=== PATIENT | male | born 1945 | race Caucasian/White ===

== ENCOUNTER 2018-05-24 11:21 | Emergency (ER) | payer BC, MEDICARE, OTHER, SELFPAY ==
[2018-05-24 11:25] VITALS: BP 159/86; PULSE 53; RESP 18; TEMP 36.7; O2SAT 99
--- NOTE | 2018-05-24 11:39 | DI.RAD.S_ITS ---
PROCEDURE: XR RIBS LT MIN 3V W CXR1V INDICATIONS: fall w/ left rib pain. TECHNIQUE: 2 views of the left ribs were acquired, along with a single view chest. COMPARISON: [facility], , CHEST 2 VIEW, 10/02/2009, 16:30. FINDINGS: Surgical changes and devices: Median sternotomy wires. Bones and chest wall: No fractures or dislocations. No suspicious bony lesions. Overlying soft tissues appear unremarkable. Lungs and pleura: No pleural effusions or pneumothorax. Lungs appear clear. Mediastinum: Mediastinal contours appear normal. Heart size is normal. IMPRESSION: No displaced rib fracture. No acute cardiopulmonary disease process. Dictated by: Nisha Webb MD, PhD on 05/24/2018 at 12:06 Approved by: Nisha Webb MD, PhD on 05/24/2018 at 12:07
--- NOTE | 2018-05-24 12:05 | ED_ITS ---
HPI - Back Pain/Injury <DAVID Ferguson - Last Filed: 05/24/18 22:23> General Chief Complaint: Back Pain/Injury Stated Complaint: FELL OFF TRUCK AND POSSIBLY BROKE RIBS Time Seen by Provider: 05/24/18 12:05 Source: patient Mode of arrival: ambulatory Limitations: no limitations History of Present Illness HPI Narrative: 72-year-old male here for complaint of pain into his left lateral ribcage after he fell out of the back of his pickup truck 2 days ago. He states that he stepped backwards and stepped off the back of the tailgate landing on his left posterior ribcage area. He denies any head injury. He denies any back pain. No neck pain. No loss of consciousness. Patient is ambulatory into the emergency room. He reports pain into his the left lateral rib ribcage that was worse this morning when he woke up. Increased pain with touch to the left lateral ribcage. He denies any shortness of breath. No other concerns or complaints at this time. Review of Systems <DAVID Ferguson - Last Filed: 05/24/18 22:23> Eyes Denies change in vision, Denies eye discharge, Denies irritation and Denies loss of vision ENT Ears, Nose, Mouth, and Throat: Denies change in voice, Denies neck pain and Denies sore throat Cardiovascular Denies chest pain, Denies irregular heart rhythm, Denies lightheadedness, Denies palpitations, Denies dyspnea, Denies dyspnea on exertion and Denies orthopnea Respiratory Denies cough, Denies dyspnea, Denies dyspnea on exertion and Denies wheezing Gastrointestinal Gastrointestinal: Denies abdominal pain, Denies change in bowel habits, Denies diarrhea, Denies nausea and Denies vomiting Genitourinary Denies hematuria, Denies flank pain, Denies urinary incontinence and Denies urinary urgency Comments: Musculoskeletal Denies neck pain Comments: Pain to left lateral ribcage status post fall Integumentary/Breasts Denies pruritus, Denies erythema, Denies rash and Denies wounds Neurologic Denies confusion and Denies loss of vision Psychiatric Denies anxiety, Denies confusion, Denies depression, Denies homicidal ideation and Denies suicidal ideation Endocrine Denies palpitations Hematologic/Lymphatic Denies easy bruising Allergic/Immunologic Denies wheezing Exam <DAVID Ferguson - Last Filed: 05/24/18 22:23> Initial Vital Signs Initial Vital Signs: Vital Signs Temperature 98.1 F 05/24/18 11:25 Pulse Rate 53 L 05/24/18 11:25 Respiratory Rate 18 05/24/18 11:25 Blood Pressure 159/86 H 05/24/18 11:25 Pulse Oximetry 99 05/24/18 11:25 Const General: cooperative and well developed Nutritional Appearance: well nourished Orientation: alert, awake, oriented x3 and not confused [facility] Mouth: oral mucosae normal and moist mucous membranes Eyes Conjunctivae: conjunctivae normal Sclera: sclerae normal Pupils: PERRL EOM: EOM intact bilaterally Resp Effort & Inspection: normal respiratory effort, able to speak in complete sentences, no respiratory distress and no use of accessory muscles Auscultation: clear to auscultation bilaterally, no rales, no rhonchi and no wheezes Cardio Rate: regular rate Rhythm: regular rhythm Heart Sounds: no click, no gallops, murmur and no rubs Pulses: normal peripheral pulses GI Inspection: non-distended Palpation: soft, no hepatosplenomegaly, No guarding, No pulsatile mass and No tender Auscultation: normal bowel sounds Skin General: no rashes or lesions noted, No jaundice and No petechiae Neuro General: alert, oriented x3, gait normal and no focal motor deficits Speech: speech normal Extrem Other: Tenderness on palpation to the left lateral rib cage. No ecchymosis. No deformities. <Aneesh Sher DO - Last Filed: 05/25/18 07:10> Initial Vital Signs Initial Vital Signs: Vital Signs Temperature 98.1 F 05/24/18 11:25 Pulse Rate 53 L 05/24/18 11:25 Respiratory Rate 18 05/24/18 11:25 Blood Pressure 159/86 H 05/24/18 11:25 Pulse Oximetry 99 05/24/18 11:25 Course <DAVID Ferguson - Last Filed: 05/24/18 22:23> Orders Ordered: ED Orders 05/24/18 11:39 XR ribs LT min 3V w CXR1V Stat Vital Signs - 8 hr 05/24/18 11:25 Temperature 98.1 F Pulse Rate 53 L Respiratory Rate 18 Blood Pressure 159/86 H Pulse Oximetry 99 <Aneesh Sher DO - Last Filed: 05/25/18 07:10> Orders Ordered: ED Orders 05/24/18 11:39 XR ribs LT min 3V w CXR1V Stat Vital Signs - 8 hr 05/24/18 11:25 Temperature 98.1 F Pulse Rate 53 L Respiratory Rate 18 Blood Pressure 159/86 H Pulse Oximetry 99 MDM - Back Pain/Injury <DAVID Ferguson - Last Filed: 05/24/18 22:23> Imaging Data left ribs: Radiologist's impression: Signed Patient: Dylan Howard MR#: [id number] : 1945 Acct:[id number] Age/Sex: 72 / M Date of Service: 05/24/18 Loc: ED Accession Number: [id number] Procedure: XR ribs LT min 3V w CXR1V Ordering Provider: Aneesh Sher D.O. PROCEDURE: XR RIBS LT MIN 3V W CXR1V INDICATIONS: fall w/ left rib pain. TECHNIQUE: 2 views of the left ribs were acquired, along with a single view chest. COMPARISON: [facility], , CHEST 2 VIEW, 10/02/2009, 16:30. FINDINGS: Surgical changes and devices: Median sternotomy wires. Bones and chest wall: No fractures or dislocations. No suspicious bony lesions. Overlying soft tissues appear unremarkable. Lungs and pleura: No pleural effusions or pneumothorax. Lungs appear clear. Mediastinum: Mediastinal contours appear normal. Heart size is normal. IMPRESSION: No displaced rib fracture. No acute cardiopulmonary disease process. Dictated by: Nisha Webb MD, PhD on 05/24/2018 at 12:06 Approved by: Nisha Webb MD, PhD on 05/24/2018 at 12:07 [facility] Narrative Medical decision making narrative: X-ray of the left ribs and chest was obtained was negative for any acute fractures. Signs and symptoms presents as contusion to the left ribcage. [id number] Tylenol or Motrin as needed for any discomfort. Rest area. Follow up with primary care provider later this week for re-evaluation. For any worsening symptoms return to the emergency room. Discharge Plan Departure Patient Disposition: Home, Self-Care Clinical Impression: Contusion of rib on left side Discharge Date/Time: 05/24/18 12:41 Interventions: ED Discharge Assessment Last Done: 05/24/18 12:39 Instructions: DI for Rib Contusion Activity Restrictions/Additional Instructions: X-ray of the left ribs and chest was obtained was negative for any acute fractures. Signs and symptoms presents as contusion to the left ribcage. Over- the-counter Tylenol or Motrin as needed for any discomfort. Rest area. Follow up with primary care provider later this week for re-evaluation. For any worsening symptoms return to the emergency room. Referrals: Karthik Aleman MD [Primary Care Provider] - <Aneesh Sher DO - Last Filed: 05/25/18 07:10> Cosign ED Attending Laila Attestation: I was available for consultation during this patient's emergency department encounter
== END 2018-05-24 12:41 | disposition home or self-care (01) ==
PROVIDERS: Emergency Provider Nurse Practitioner Family; PCP Family Medicine
DX: S20.212A Contusion of left front wall of thorax, initial encounter (principal); W17.89XA Other fall from one level to another, initial encounter
CPT/HCPCS: 71101; 99282; 99283

== ENCOUNTER 2018-06-01 11:54 | Emergency (ER) | payer BC, MEDICARE, OTHER, SELFPAY ==
[2018-06-01 11:59] VITALS: BP 189/85; PULSE 70; RESP 14; TEMP 36.7; O2SAT 100; BMI 30.2
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
--- NOTE | 2018-06-01 12:34 | DI.CT.S_ITS ---
PROCEDURE: CT THORACIC SPINE WO CON INDICATIONS: pain s/p fall, history of spine fx TECHNIQUE: Noncontrast 3 mm thick sections acquired through the region of interest in the thoracic spine. Sagittal and coronal reformats were then constructed. For radiation dose reduction, the following was used: automated exposure control. COMPARISON: [facility], CHEST 2 VIEW, 10/02/2009, 16:30. FINDINGS: Image quality: Excellent. Bones: There is normal overall bony alignment. Upper thoracic kyphosis is associated with a chronic compression fracture of T6 and disc degeneration T5-6. No acute vertebral body compression fractures. No suspicious sclerotic or lytic bony lesions. Central spinal canal is of normal overall caliber. Soft tissues: Left posterior calcified pleural plaque. No paravertebral masses or hematomas. Visualized posteromedial lungs appear clear. Aortic valve replacement and median sternotomy. IMPRESSION: 1. Upper thoracic kyphosis. 2. Chronic compression fracture T6. 3. Degenerative disc disease T5-6. Dictated by: Junior Shay M.D. on 06/01/2018 at 13:28 Approved by: Junior Shay M.D. on 06/01/2018 at 13:39
[2018-06-01 13:05] LABS: D Dimer 467 ng/mL (<230)
[2018-06-01 13:08] LABS: BUN Creatinine Ratio 27.5 (6-22); Blood Urea Nitrogen 22 mg/dL (9-20); Calcium 9.3 mg/dL (8.4-10.2); Carbon Dioxide 31 mmol/L (22-32); Chloride 100 mmol/L (98-107); Estimated Glomerular Filt Rate > 60.0 mL/min (>60); Glucose 95 mg/dL (80-110); HEMOLYSIS < 15 (0-50); Potassium 3.8 mmol/L (3.4-5.1); Sodium 140 mmol/L (137-145)
[2018-06-01 13:25] VITALS: BP 122/52; PULSE 85; RESP 22; O2SAT 93
[2018-06-01 13:51] LABS: INR 1.1 (0.9-1.3); Prothrombin Time 11.6 SECONDS (10.1-12.7)
[2018-06-01 13:54] LABS: PTT Partial Thromboplastin Tim 35 SECONDS (26.4-36.2)
--- NOTE | 2018-06-01 14:03 | DI.CT.S_ITS ---
PROCEDURE: CT ANGIO CHEST PE PROTOCOL INDICATIONS: thoracic pain, elevated d dimer, h/o DVT TECHNIQUE: After the administration of intravenous contrast, 2 mm thick sections acquired from the pulmonary apices to the posterior costophrenic angles. 3-dimensional maximum intensity projection (MIP) coronal and sagittal reformats were then acquired through the thorax. For radiation dose reduction, the following was used: automated exposure control, adjustment of mA and/or kV according to patient size. COMPARISON: [facility], CT, CT THORACIC SPINE WO CON, 06/01/2018, 13:06. FINDINGS: Image quality: Excellent. Pulmonary arteries: Pulmonary arteries are normal in size, and demonstrate no intraluminal filling defects to suggest central pulmonary embolism. Lungs and pleura: No acute consolidation. 1-2 mm lobe pulmonary nodule seen for example on image 21 at 5, image 25 series 5.. Calcified left pleural plaque No pleural effusions or pneumothorax. Central and peripheral airways are patent. Mediastinum: Heart size is enlarged, without pericardial effusion. Coronary artery calcifications are present. No mediastinal or hilar adenopathy. Thoracic aorta is normal in caliber and enhancement. Esophagus is normal in caliber, without hiatal hernia. Bones and chest wall: Minimally displaced fractures of the left fifth, eighth, ninth ribs. Chronic partial osseous fusion of C5 and C6 vertebral bodies Abdomen: Visualized upper abdominal solid organs appear normal in the early arterial phase of enhancement. IMPRESSION: No evidence of pulmonary embolism. Acute appearing left fifth, eighth and ninth minimally displaced rib fractures. Cardiomegaly, and coronary artery disease. Calcified left pleural plaque raises the possibility of asbestos related pleural disease. Nonspecific 4 mm right upper lobe pulmonary nodules which be further evaluated with noncontrast chest CT in one year to document long-term stability and exclude early metastatic/malignant possibilities, as clinically warranted. Dictated by: Evan Underwood M.D. on 06/01/2018 at 14:18 Approved by: Evan Underwood M.D. on 06/01/2018 at 14:25
[2018-06-01] MEDS: OXYCODONE/ACETAMINOPHEN 5/325 TABLET 1 TAB PO (14:09)
[2018-06-01] MEDS: SODIUM CHLORIDE 0.9% 1,000 ML 1000 ML IV (14:10)
[2018-06-01 15:20] VITALS: BP 188/84; PULSE 58; RESP 20; O2SAT 100
--- NOTE | 2018-06-01 15:22 | PC.NURSE ---
manuel RN in room to talk to pt about questions and concerns they have about discharge instructions. questions answered before depart.
== END 2018-06-01 15:23 | disposition home or self-care (01) ==
PROVIDERS: Emergency Provider Internal Medicine; PCP Family Medicine
DX: S22.42XA Multiple fractures of ribs, left side, initial encounter for closed fracture (principal); W17.89XA Other fall from one level to another, initial encounter
CPT/HCPCS: 36415; 36591; 71275; 72128; 80048; 85379; 85610; 85730; 96360; 99283; 99284; Q9967

== ENCOUNTER → 2018-06-19 10:24 | Outpatient (CLI) | payer BC, MEDICARE, OTHER, SELFPAY ==
--- NOTE | 2018-06-19 | DI.RAD.S_ITS ---
PROCEDURE: XR CHEST 2V INDICATIONS: Intercostal pain TECHNIQUE: 2 views of the chest were acquired. COMPARISON: [facility], , CHEST 2 VIEW, 10/02/2009, 16:30. FINDINGS: Surgical changes and devices: Prosthetic heart valve is seen. Sternotomy wires also noted. Lungs and pleura: No pleural effusions or pneumothorax. Lungs are clear. Mediastinum: Mediastinal contours are normal. Heart size is normal. Bones and chest wall: No suspicious bony abnormalities. Soft tissues appear unremarkable. IMPRESSION: No acute cardiopulmonary pathology. Dictated by: Riccardo Sanchez M.D. on 06/19/2018 at 12:07 Approved by: Riccardo Sanchez M.D. on 06/19/2018 at 12:09
== END ==
PROVIDERS: PCP Family Medicine; Visit Provider Family Medicine
DX: R07.82 Intercostal pain (principal)
CPT/HCPCS: 71046

== ENCOUNTER 2020-05-20 09:44 | Emergency (ER) | payer MEDICARE, OTHER, SELFPAY ==
[2020-05-20] VITALS (13 sets, daily range): BP systolic 145–200; BP diastolic 74–93; PULSE 64–68; RESP 14–18; TEMP 36.6; O2SAT 98–100
[2020-05-20] MEDS: SODIUM CHLORIDE 0.9% 1,000 ML 1000 ML IV (10:18)
[2020-05-20 10:35] LABS: Add Manual Diff / Slide Review NO; Basophils Absolute Auto 100 /uL (0-100); Basophils Percent Auto 0.5 % (0-2); Eosinophils Absolute Auto 300 /uL (0-450); Eosinophils Percent Auto 2.7 % (2-4); Hematocrit 43.1 % (41-53); Hemoglobin 14.4 g/dL (13.5-17.5); Lymphocytes Absolute Auto 2400 /uL (1100-4500); Lymphocytes Percent Auto 23.7 % (25-40); Mean Corpuscular HGB Conc 33.4 % (30-36); Mean Corpuscular Hemoglobin 29.6 PG (26-34); Mean Corpuscular Volume 88.6 fL (80-100); Monocytes Absolute Auto 1100 /uL (0-900); Monocytes Percent Auto 10.7 % (3-14); Neutrophils Absolute Auto 6300 /uL (1500-7000); Neutrophils Percent Auto 62.4 % (50-75); Platelet Count 259 X10^3/uL (150-400); Red Blood Cell Count 4.86 X10^6/uL (4.5-5.9); Red Cell Distribution Width 13.9 % (11.6-14.8); White Blood Cell Count 10.1 X10^3/uL (4.5-11.0)
[2020-05-20 10:39] LABS: Alanine Aminotransferase 46 IU/L (<50); Albumin 4.3 g/dL (3.5-5.0); Albumin Globulin Ratio 1.5 (1.0-2.8); Alkaline Phosphatase 110 U/L (38-126); Aspartate Aminotransferase 49 IU/L (17-59); BUN Creatinine Ratio 26.9 (6-22); Bilirubin Total 0.6 mg/dL (0.2-1.3); Blood Urea Nitrogen 21 mg/dL (9-20); Calcium 9.6 mg/dL (8.4-10.2); Carbon Dioxide 31 mmol/L (22-32); Chloride 106 mmol/L (98-107); Estimated Glomerular Filt Rate > 60.0 mL/min (>60); Globulin 2.8 g/dL (1.7-4.1); Glucose 90 mg/dL (80-110); HEMOLYSIS < 15 (0-50); Sodium 141 mmol/L (137-145); Total Protein 7.1 g/dL (6.3-8.2)
--- NOTE | 2020-05-20 11:25 | DI.US.S_ITS ---
PROCEDURE: US ABDOMEN LIMITED INDICATIONS: UPPER MID ABD PAIN, INTERMITTENT NAUSEA TECHNIQUE: Real-time scanning was performed of the abdominal and retroperitoneal organs, with image documentation. COMPARISON: None. FINDINGS: Liver: Liver is normal in size and homogeneous in echotexture. Gallbladder: Is within normal limits Biliary ducts: Intrahepatic bile ducts are non-dilated. Extrahepatic bile duct caliber measures 7.3 mm. Normal is 6-7 mm or less in diameter, or 10 mm or less post-cholecystectomy. Pancreas: Not well seen. IMPRESSION: No acute process. Dictated by: Jacki Wolf M.D. on 05/20/2020 at 12:04 Approved by: Jacki Wolf M.D. on 05/20/2020 at 12:04
[2020-05-20 11:55] LABS: Creatine Kinase 66 U/L (55-170); Lipase 339 U/L (23-300)
[2020-05-20 12:08] LABS: Troponin I < 0.012 ng/mL (0.01-0.034)
--- NOTE | 2020-05-20 13:25 | ED.NAVMDI ---
HPI - Nausea/Vomiting/Diarrhea <DAVID Villarreal - Last Filed: 05/20/20 18:14> General Chief complaint: Nausea/Vomiting/Diarrhea Stated complaint: Thinks food poisening - 05/09/20 Time Seen by Provider: 05/20/20 11:08 Source: patient Mode of arrival: Ambulatory Limitations: no limitations History of Present Illness HPI Narrative: This is a 74-year-old male, former smoker, who has chronic medical condition such as hypertension, aortic valve replacement presents to ED with chief complain of mid upper abdominal discomfort and intermittent nausea and fever which has been resolved after a day. Patient reports his symptoms started after he had eaten well cooked burger with fries and onion rings at [facility] on 05/09/20. Day after, he work around the house strenuously crawling under the crawl spaces. He felt lightheaded and nauseous. Next day, he had fever with T-max of 101.5? and had taken Tylenol and this has been resolved after a day. Since then, patient has been having from loose to now soft stools every 1-2 days. Abdominal pain is not radiating but worsen with eating and intermittent. Patient continue to have intermittent nausea. Patient denies pain or nausea at this time but he had worse cramping pain yesterday. Patient denies chest pain, breathing difficulty. Patient denies blood in his stool or urinary symptoms. Patient denies diarrhea after 1 day on 05/11/20. Patient denies recent travel, camping, eating raw foods, exposure to known illnesses, or exposure to known Covid. Related Data Home Medications Medication Instructions Recorded Confirmed aspirin 325 mg PO DAILY 06/01/18 05/20/20 olmesartan 20 mg PO DAILY 06/01/18 05/20/20 Allergies Allergy/AdvReac Type Severity Reaction Status Date / Time Penicillins Allergy Severe Rash Verified 05/20/20 11:13 erythromycin base Allergy Intermediate Rash Verified 05/20/20 11:13 [From Erythrocin] Review of Systems <DAVID Villarreal - Last Filed: 05/20/20 18:14> Review of Systems Narrative: General: See HPI HEENT: Denies sinus pain, ear pain, sore throat, difficulty swallowing, dizziness. Respiratory: Denies dyspnea, cough, wheezing, hemoptysis, sputum. Cardiovascular: Denies chest pain, palpitations, orthopnea, edema. Gastrointestinal: See HPI : Denies dysuria, frequency, incontinence, hematuria, urinary retention. Musculoskeletal: Denies weakness, joint pain or bony pain. Skin: Denies rash, skin lesions, or other. Neurologic: Denies weakness, headache, numbness, change in speech, confusion, seizures, incoordination. Psychiatric: No concerning psychosocial issues. 12-point review of systems is negative except for those stated above. Patient History <DAVID Villarreal - Last Filed: 05/20/20 18:14> Medical History History of DVT in adulthood (Resolved) History of hyperlipidemia (Resolved) History of spinal fracture (Resolved) Hypertension (Chronic) Surgical History Aortic valve replaced (Resolved) Social History Smoking Status: Former smoker Smoking Status: Former smoker alcohol intake frequency: holidays/special occasions only Substance Use Type: does not use Exam <DAVID Villarreal - Last Filed: 05/20/20 18:14> Narrative Exam Narrative: GEN: Alert, oriented x 3, well appearing and nourished, and in no acute distress. Head: Normal cephalic, atraumatic. No scalp or temporal tenderness, palpable mass or rash. EYES: Pupils are equal, round, and reactive to light and accommodation. Extraocular muscles are intact bilaterally. There is no subconjunctival hemorrhage, exudate and sclera non-icteric. ENT: Hearing grossly intact. Nose without bleeding, purulent discharge or deviation. Mucous membrane moist, no mucosal lesion. Throat without erythema, tonsillar hypertrophy or exudate. Uvula in midline, airway patent. Neck: Trachea in midline. No JVD, non-tender without lymphadenopathy. No masses or thyroid megaly. Supple, non-tender and no meningeal signs. CARDIAC: Normal regular rate and rhythm with mild murmurs. No gallops, or rubs. No chest wall tenderness. No peripheral edema, cyanosis or pallor. Capillary refill is less than 2 seconds. RESPIRATORY: Lungs are clear to auscultate bilaterally. No cough, wheezes, rales, or rhonchi. No stridor, respiratory distress, increase work of breathing, or accessary muscle used. ABD: Abdomen soft, mild tenderness to palpate in epigastric and upper abdomen without distension. No guarding or rebound tenderness to palpate. Bowel sounds are normal in all 4 quadrants. There is no palpable masses or organomegaly. EXT: Full painless ROM of all extremities with no loss of sensation, strength, effusion or edema. SKIN: Warm, dry, normal color for patient. No erythema, lesions or rash over visible areas. BACK: Nontender without deformity or crepitance. No flank tenderness. NEUROLOGICAL: Alert and oriented to place, time and person. Sensation and motor function intact bilaterally. No facial droops, dysphasia. PSYCHIATRIC: Good judgement and reason, without hallucinations, abnormal affect or abnormal behaviors during the examination. Patient is not suicidal. Initial Vital Signs Initial Vital Signs: Vital Signs Temperature 97.8 F 05/20/20 09:47 Pulse Rate 64 05/20/20 09:47 Respiratory Rate 18 05/20/20 09:47 Blood Pressure 200/93 H 05/20/20 09:47 Pulse Oximetry 98 05/20/20 09:47 <Colten Lara MD - Last Filed: 05/21/20 08:05> Initial Vital Signs Initial Vital Signs: Vital Signs Temperature 97.8 F 05/20/20 09:47 Pulse Rate 64 05/20/20 09:47 Respiratory Rate 18 05/20/20 09:47 Blood Pressure 200/93 H 05/20/20 09:47 Pulse Oximetry 98 05/20/20 09:47 Scores <DAVID Villarreal - Last Filed: 05/20/20 18:14> GCS Franklin coma scale eye opening: Spontaneous Power coma scale verbal response: Orientated Franklin coma scale motor response: Obey commands Franklin coma scale total score: 15 Course <DAVID Villarreal - Last Filed: 05/20/20 18:14> Orders Ordered: Discontinued Medications Sodium Chloride (Normal Saline 0.9%) 1,000 mls @ 1,000 mls/hr IV BOLUS ONE Stop: 05/20/20 10:55 Last Infusion: 05/20/20 12:08 Dose: 0 mls/hr Documented by: Admin: 05/20/20 10:18 Dose: 1,000 mls/hr Documented by: GINA Vital Signs Vital signs: Vital Signs - 8 hr 05/20/20 09:47 05/20/20 10:30 05/20/20 11:00 Temperature 97.8 F Pulse Rate 64 68 Respiratory Rate 18 14 Blood Pressure 200/93 H 152/74 H 149/80 H Pulse Oximetry 98 99 05/20/20 11:15 05/20/20 11:30 05/20/20 11:45 Temperature Pulse Rate Respiratory Rate Blood Pressure 168/85 H 152/79 H 159/88 H Pulse Oximetry 05/20/20 12:00 05/20/20 12:15 05/20/20 12:30 Temperature Pulse Rate Respiratory Rate Blood Pressure 145/79 H 153/84 H 150/80 H Pulse Oximetry 05/20/20 12:45 05/20/20 13:00 05/20/20 13:15 Temperature Pulse Rate 65 Respiratory Rate Blood Pressure 156/89 H 158/82 H 163/84 H Pulse Oximetry 100 05/20/20 13:30 Temperature Pulse Rate Respiratory Rate Blood Pressure 156/81 H Pulse Oximetry <Colten Lara MD - Last Filed: 05/21/20 08:05> Orders Ordered: Discontinued Medications Sodium Chloride (Normal Saline 0.9%) 1,000 mls @ 1,000 mls/hr IV BOLUS ONE Stop: 05/20/20 10:55 Last Infusion: 05/20/20 12:08 Dose: 0 mls/hr Documented by: Admin: 05/20/20 10:18 Dose: 1,000 mls/hr Documented by: GINA Vital Signs Vital signs: Vital Signs - 8 hr 05/20/20 09:47 05/20/20 10:30 05/20/20 11:00 Temperature 97.8 F Pulse Rate 64 68 Respiratory Rate 18 14 Blood Pressure 200/93 H 152/74 H 149/80 H Pulse Oximetry 98 99 05/20/20 11:15 05/20/20 11:30 05/20/20 11:45 Temperature Pulse Rate Respiratory Rate Blood Pressure 168/85 H 152/79 H 159/88 H Pulse Oximetry 05/20/20 12:00 05/20/20 12:15 05/20/20 12:30 Temperature Pulse Rate Respiratory Rate Blood Pressure 145/79 H 153/84 H 150/80 H Pulse Oximetry 05/20/20 12:45 05/20/20 13:00 05/20/20 13:15 Temperature Pulse Rate 65 Respiratory Rate Blood Pressure 156/89 H 158/82 H 163/84 H Pulse Oximetry 100 05/20/20 13:30 Temperature Pulse Rate Respiratory Rate Blood Pressure 156/81 H Pulse Oximetry MDM - Nausea/Vomiting/Diarrhea <Fadi DAVID Lewis - Last Filed: 05/20/20 18:14> Differential Diagnosis Differential diagnosis: Likely gastroenteritis, dehydration and other (Bowel obstruction, cholecystitis) Medical Records Attestation: I reviewed the patient's medical records. Lab Data Attestation: I reviewed the patient's lab results. Result diagrams: 05/20/20 10:14 05/20/20 10:14 Labs: Lab Results 05/20/20 05/20/20 05/20/20 Range/Units 10:14 10:14 10:14 WBC 10.1 (4.5-11.0) X10^3/uL RBC 4.86 (4.5-5.9) X10^6/uL Hgb 14.4 (13.5-17.5) g/dL Hct 43.1 (41-53) % MCV 88.6 (80-100) fL MCH 29.6 (26-34) PG MCHC 33.4 (30-36) % RDW 13.9 (11.6-14.8) % Plt Count 259 (150-400) X10^3/uL Neut % (Auto) 62.4 (50-75) % Lymph % (Auto) 23.7 L (25-40) % Charlton % (Auto) 10.7 (3-14) % Eos % (Auto) 2.7 (2-4) % Baso % (Auto) 0.5 (0-2) % Neut # (Auto) 6300 (0090-7950) /uL Lymph # (Auto) 2400 (5198-8613) /uL Charlton # (Auto) 1100 H (0-900) /uL Eos # (Auto) 300 (0-450) /uL Baso # (Auto) 100 (0-100) /uL Sodium 141 (137-145) mmol/L Potassium 4.0 (3.4-5.1) mmol/L Chloride 106 (98-107) mmol/L Carbon Dioxide 31 (22-32) mmol/L BUN 21 H (9-20) mg/dL Creatinine 0.78 (0.66-1.25) mg/dL Estimated GFR > 60.0 (>60) mL/min BUN/Creatinine Ratio 26.9 H (6-22) Glucose 90 (80-110) mg/dL Calcium 9.6 (8.4-10.2) mg/dL Total Bilirubin 0.6 (0.2-1.3) mg/dL AST 49 (17-59) IU/L ALT 46 (<50) IU/L Alkaline Phosphatase 110 (38-126) U/L Total Creatine Kinase 66 (55-170) U/L CK-MB (CK-2) TNP CK-MB (CK-2) Rel Index TNP Troponin I < 0.012 (0.01-0.034) ng/mL Total Protein 7.1 (6.3-8.2) g/dL Albumin 4.3 (3.5-5.0) g/dL Globulin 2.8 (1.7-4.1) g/dL Albumin/Globulin Ratio 1.5 (1.0-2.8) Lipase 339 H (23-300) U/L COVID-19 PCR (Negative) 05/20/20 Range/Units 13:35 WBC (4.5-11.0) X10^3/uL RBC (4.5-5.9) X10^6/uL Hgb (13.5-17.5) g/dL Hct (41-53) % MCV (80-100) fL MCH (26-34) PG MCHC (30-36) % RDW (11.6-14.8) % Plt Count (150-400) X10^3/uL Neut % (Auto) (50-75) % Lymph % (Auto) (25-40) % Charlton % (Auto) (3-14) % Eos % (Auto) (2-4) % Baso % (Auto) (0-2) % Neut # (Auto) (3391-0993) /uL Lymph # (Auto) (5526-0601) /uL Charlton # (Auto) (0-900) /uL Eos # (Auto) (0-450) /uL Baso # (Auto) (0-100) /uL Sodium (137-145) mmol/L Potassium (3.4-5.1) mmol/L Chloride (98-107) mmol/L Carbon Dioxide (22-32) mmol/L BUN (9-20) mg/dL Creatinine (0.66-1.25) mg/dL Estimated GFR (>60) mL/min BUN/Creatinine Ratio (6-22) Glucose (80-110) mg/dL Calcium (8.4-10.2) mg/dL Total Bilirubin (0.2-1.3) mg/dL AST (17-59) IU/L ALT (<50) IU/L Alkaline Phosphatase (38-126) U/L Total Creatine Kinase (55-170) U/L CK-MB (CK-2) CK-MB (CK-2) Rel Index Troponin I (0.01-0.034) ng/mL Total Protein (6.3-8.2) g/dL Albumin (3.5-5.0) g/dL Globulin (1.7-4.1) g/dL Albumin/Globulin Ratio (1.0-2.8) Lipase (23-300) U/L COVID-19 PCR Negative (Negative) Imaging Data US - abdomen: Radiologist's Impression: [place] [id number] Ultrasound Report Signed Patient: Dylan Howard#: [id number] : 7Acct:[id number] Age/Sex: 74 / MDate of Service: 05/20/20 Loc: ED Accession Number: [id number] Procedure: US abdomen limited Ordering Provider: Fadi Lewis PROCEDURE: US ABDOMEN LIMITED INDICATIONS: UPPER MID ABD PAIN, INTERMITTENT NAUSEA TECHNIQUE: Real-time scanning was performed of the abdominal and retroperitoneal organs, with image documentation. COMPARISON: None. FINDINGS: Liver: Liver is normal in size and homogeneous in echotexture. Gallbladder: Is within normal limits Biliary ducts: Intrahepatic bile ducts are non-dilated. Extrahepatic bile duct caliber measures 7.3 mm. Normal is 6-7 mm or less in diameter, or 10 mm or less post-cholecystectomy. Pancreas: Not well seen. IMPRESSION: No acute process. Dictated by: Jacki Wolf M.D. on 05/20/2020 at 12:04 Approved by: Jacki Wolf M.D. on 05/20/2020 at 12:04 [facility] Narrative Medical decision making narrative: This is a 74-year-old male who presents to ED with postprandial upper mid abdominal pain with intermittent nausea and soft stools. The was febrile for 1 day which has been resolved. Physical exam showed mild tenderness to palpate in epigastric region. No leukocytosis. Elevated of BUN and BUN/creatinine ratio indicating possible dehydration. Patient states he does not drink enough fluid daily. Lipase was mildly elevated to 339. Patient received 1 L of normal saline. Abdominal ultrasound shows non dilated intrahepatic bile duck with near normal extrahepatic bile dock without acute disease process. Patient fell improved after ED stay, patient advised to follow-up with primary care physician with return precautions. Patient verbalized understanding in agreement with treatment plan. Covid swab was done with negative result. <Colten Lara MD - Last Filed: 05/21/20 08:05> Lab Data Labs: Lab Results 05/20/20 05/20/20 05/20/20 Range/Units 10:14 10:14 10:14 WBC 10.1 (4.5-11.0) X10^3/uL RBC 4.86 (4.5-5.9) X10^6/uL Hgb 14.4 (13.5-17.5) g/dL Hct 43.1 (41-53) % MCV 88.6 (80-100) fL MCH 29.6 (26-34) PG MCHC 33.4 (30-36) % RDW 13.9 (11.6-14.8) % Plt Count 259 (150-400) X10^3/uL Neut % (Auto) 62.4 (50-75) % Lymph % (Auto) 23.7 L (25-40) % Charlton % (Auto) 10.7 (3-14) % Eos % (Auto) 2.7 (2-4) % Baso % (Auto) 0.5 (0-2) % Neut # (Auto) 6300 (2814-9667) /uL Lymph # (Auto) 2400 (8949-2199) /uL Charlton # (Auto) 1100 H (0-900) /uL Eos # (Auto) 300 (0-450) /uL Baso # (Auto) 100 (0-100) /uL Sodium 141 (137-145) mmol/L Potassium 4.0 (3.4-5.1) mmol/L Chloride 106 (98-107) mmol/L Carbon Dioxide 31 (22-32) mmol/L BUN 21 H (9-20) mg/dL Creatinine 0.78 (0.66-1.25) mg/dL Estimated GFR > 60.0 (>60) mL/min BUN/Creatinine Ratio 26.9 H (6-22) Glucose 90 (80-110) mg/dL Calcium 9.6 (8.4-10.2) mg/dL Total Bilirubin 0.6 (0.2-1.3) mg/dL AST 49 (17-59) IU/L ALT 46 (<50) IU/L Alkaline Phosphatase 110 (38-126) U/L Total Creatine Kinase 66 (55-170) U/L CK-MB (CK-2) TNP CK-MB (CK-2) Rel Index TNP Troponin I < 0.012 (0.01-0.034) ng/mL Total Protein 7.1 (6.3-8.2) g/dL Albumin 4.3 (3.5-5.0) g/dL Globulin 2.8 (1.7-4.1) g/dL Albumin/Globulin Ratio 1.5 (1.0-2.8) Lipase 339 H (23-300) U/L COVID-19 PCR (Negative) 05/20/20 Range/Units 13:35 WBC (4.5-11.0) X10^3/uL RBC (4.5-5.9) X10^6/uL Hgb (13.5-17.5) g/dL Hct (41-53) % MCV (80-100) fL MCH (26-34) PG MCHC (30-36) % RDW (11.6-14.8) % Plt Count (150-400) X10^3/uL Neut % (Auto) (50-75) % Lymph % (Auto) (25-40) % Charlton % (Auto) (3-14) % Eos % (Auto) (2-4) % Baso % (Auto) (0-2) % Neut # (Auto) (3955-1144) /uL Lymph # (Auto) (9094-3688) /uL Charlton # (Auto) (0-900) /uL Eos # (Auto) (0-450) /uL Baso # (Auto) (0-100) /uL Sodium (137-145) mmol/L Potassium (3.4-5.1) mmol/L Chloride (98-107) mmol/L Carbon Dioxide (22-32) mmol/L BUN (9-20) mg/dL Creatinine (0.66-1.25) mg/dL Estimated GFR (>60) mL/min BUN/Creatinine Ratio (6-22) Glucose (80-110) mg/dL Calcium (8.4-10.2) mg/dL Total Bilirubin (0.2-1.3) mg/dL AST (17-59) IU/L ALT (<50) IU/L Alkaline Phosphatase (38-126) U/L Total Creatine Kinase (55-170) U/L CK-MB (CK-2) CK-MB (CK-2) Rel Index Troponin I (0.01-0.034) ng/mL Total Protein (6.3-8.2) g/dL Albumin (3.5-5.0) g/dL Globulin (1.7-4.1) g/dL Albumin/Globulin Ratio (1.0-2.8) Lipase (23-300) U/L COVID-19 PCR Negative (Negative) Discharge Plan Departure Patient Disposition: Home Clinical Impression: Gastroenteritis Abdominal pain Qualifiers: Abdominal location: right upper quadrant Qualified Code(s): R10.11 - Right upper quadrant pain Discharge Date/Time: 05/20/20 13:40 Instructions: DI for Viral Gastroenteritis -- Adult, DI for Abdominal Pain-Adult Activity Restrictions/Additional Instructions: You have been diagnosed with [right upper quadrant pain with mildly elevated lipase of 339. CBC was unremarkable. Chemistry test shows mild dehydration otherwise unremarkable. Ultrasound test on upper abdomen indicates no acute findings. Covid swab was done today and will receive a phone call with the result in 2-3 days. Until your here negative result from a please continue with self quarantine at home, keeping social distance, and good hand hygiene. Avoid spicy, fatty, fried, acidic food for next several days and hydrate adequately and eat bland diet.]. What to do: *Take your medications as directed. *Follow up with your primary care provider in 2-3 days, call for an appointment. Let them know you were seen in the ED and that we asked you to be seen in follow up. *Return to ED if you have any new, worsening, or concerning symptoms, such as [chest pain, breathing difficulty, unable to tolerate fluids, worsening pain, fever, blood in the stool or vomit or any acute concerns. If you have recurring diarrhea or frequent loose stools, stool test is warrant]. Prescriptions: No Action aspirin 325 mg Tablet 325 mg PO DAILY RF: 0 olmesartan 20 mg tablet 20 mg PO DAILY RF: 0 Referrals: Karthik Aleman MD [Primary Care Provider] -
[2020-05-20 15:04] LABS: COVID19 -Nasal RAPID Negative (Negative)
== END 2020-05-20 13:40 | disposition home or self-care (01) ==
PROVIDERS: Emergency Medicine; Emergency Provider Nurse Practitioner Family; PCP Family Medicine
DX: K52.9 Noninfective gastroenteritis and colitis, unspecified (principal); R10.11 Right upper quadrant pain; R11.0 Nausea; R50.9 Fever, unspecified; I10 Essential (primary) hypertension; Z95.5 Presence of coronary angioplasty implant and graft; R79.89 Other specified abnormal findings of blood chemistry
CPT/HCPCS: 36415; 76705; 80053; 82550; 83690; 84484; 85025; 87635; 96360; 96361; 99284

== ENCOUNTER → 2022-01-08 09:15 | Outpatient (CLI) | payer MEDICARE, OTHER, SELFPAY ==
--- NOTE | 2022-01-08 | DI.CT.S_ITS ---
PROCEDURE: CT HEAD/BRAIN WO CON INDICATIONS: Other acute sinusitis TECHNIQUE: Noncontrast 4.5 mm thick angled axial sections acquired from the foramen magnum to the vertex, with coronal and sagittal reformats. For radiation dose reduction, the following was used: automated exposure control, adjustment of mA and/or kV according to patient size. COMPARISON: [facility], CT, HEAD WITHOUT CONTRAST, 09/15/2014, 18:05. FINDINGS: Image quality: Excellent. CSF spaces: Basal cisterns are patent. No extra-axial fluid collections. The ventricles are symmetric in size and shape. Brain: No intracranial bleeds or masses. There is cerebral volume loss for age, with resultant ventricular and sulcal prominence. There are periventricular and deep white matter chronic small vessel ischemic changes. There is intracranial internal carotid artery atherosclerosis. Skull and face: Calvarium and visualized facial bones appear intact, without suspicious lesions. Sinuses: Visualized sinuses and mastoids are clear. IMPRESSION: Unremarkable head CT for patient age. No evidence acute stroke, hemorrhage, or mass. No evidence of sinusitis. Dictated by: Tera Gamboa M.D. on 01/08/2022 at 10:03 Approved by: Tera Gamboa M.D. on 01/08/2022 at 10:04
--- NOTE | 2022-01-08 | DI.CT.S_ITS ---
PROCEDURE: CT SINUS SCREEN WO CON INDICATIONS: Other acute sinusitis TECHNIQUE: Noncontrast 3.0 mm axial images acquired from the frontal sinuses to the mid-sella, with coronal and sagittal reformats. For radiation dose reduction, the following was used: automated exposure control, adjustment of mA and/or kV according to patient size. COMPARISON: [facility], CT, CT HEAD/BRAIN WO CON, 01/08/2022, 9:24. FINDINGS: Image quality: Excellent. Maxillary Sinuses: No bony remodeling or destruction. [id number] mucosal thickening is seen within the right maxillary sinus. There is minimal mucosal thickening within the left maxillary sinus. Ethmoid Air Cells: No bony remodeling or destruction. Sinuses are clear. Sphenoid Sinuses: No bony remodeling or destruction. Sinuses are clear. Frontal Sinuses: No bony remodeling or destruction. Sinuses are clear. Ostiomeatal Complexes: Ostiomeatal complexes are patent, yet they are constitutionally narrowed. No Aleksandar cells. Miscellaneous: Visualized intra-orbital contents are normal. No donya bullosa or paradoxical turbinate curvature. There is [id number] rightward nasal septal deviation. IMPRESSION: Maxillary sinus disease seen, right worse than left. [id number] rightward nasal septal deviation. Dictated by: Amadou Elam M.D. on 01/08/2022 at 10:59 Approved by: Amadou Elam M.D. on 01/08/2022 at 11:04
== END ==
PROVIDERS: PCP Family Medicine; Referring Provider Family Medicine; Visit Provider Family Medicine
DX: J01.80 Other acute sinusitis (principal); I65.29 Occlusion and stenosis of unspecified carotid artery; J34.2 Deviated nasal septum
CPT/HCPCS: 70450; 70486

== ENCOUNTER → 2023-11-15 12:01 | Outpatient (CLI) | payer MEDICARE, OTHER, SELFPAY ==
--- NOTE | 2023-11-15 | DI.ECHO.S_ITS ---
[facility]---------+ [facility] +---------+ : : [address] : [address] : : : : [id number] : : : : Phone: [phone]---------+ Echocardiogram Report + + :Name: LAILA SHELL Study Date: 11/15/2023 Height: 66 in : :[facility] ReadingLocation: Weight: 200 lb : : Gender: Male BSA: 2.0 m2 : :: 1945 Age: 78 yrs BP: 175/88 mmHg: :Reason For Study: HYPERTENSIVE HEART DISEASE : :Ordering Physician: LANDRY, : :STEVIE Ceron Performed By: Anita Zhao : :Referring: STEVIE ALATORRE : + + Interpretation Summary The ejection fraction is estimated to be 55-60%. Diastolic function could not be accurately assessed due to contradictory data. The right ventricle is normal in size and function. There is mild mitral regurgitation. There is a well-seated, normal functioning bioprosthetic aortic valve. There is mild tricuspid regurgitation. The right ventricular systolic pressure is estimated to be at least 24 mmHg based on an estimated right atrial pressure of 3 mm Hg. The ascending aorta is mildly enlarged, 4.0 cm. Compared to the prior study dated 08/07/2021, there is a decrease in the severity of MR. Procedure: A two-dimensional transthoracic echocardiogram with color flow and Doppler was performed. The study quality was technically adequate. Comparison is made with the echocardiogram of 08/07/2021. The patient was in sinus rhythm with heart rates between 55-66 bpm during the exam. Left Ventricle: The left ventricle is normal in size. Proximal septal thickening is noted. The ejection fraction is estimated to be 55-60%. Diastolic function could not be accurately assessed due to contradictory data. Right Ventricle: The right ventricle is normal in size and function. Atria: The left atrial size is normal. Right atrial size is normal. There is no Doppler evidence for an interatrial shunt. Mitral Valve: There is mild mitral annular calcification. The mitral valve is normal. There is mild mitral regurgitation. Aortic Valve: There is a bioprosthetic aortic valve. The peak aortic velocity is 2.5 m/sec. The aortic valve mean gradient is 14 mmHg. No aortic regurgitation is present. Tricuspid Valve: The tricuspid valve is normal in structure and function. There is mild tricuspid regurgitation. The right ventricular systolic pressure is estimated to be at least 24 mmHg based on an estimated right atrial pressure of 3 mm Hg. Pulmonic Valve: The pulmonic valve leaflets are thin and pliable; valve motion is normal. There is no pulmonic valvular regurgitation. Great Vessels: The aortic root is normal size. The ascending aorta is mildly enlarged. The IVC is of normal diameter and collapses greater than 50% with a sniff. This suggests a low right atrial pressure of 3 mm Hg. Pericardium/ Pleura There is no pericardial effusion. There is no pleural effusion. MMode/2D Measurements & Calculations LVIDd: 3.9 cm LVOT diam: 2.0 cm LVIDs: 2.7 cm asc Aorta Diam: 4.0 cm FS: 31.7 % Ao Arch Diam (Prox Trans): 3.8 cm EPSS: 1.00 cm IVSd: 1.2 cm LVPWd: 0.98 cm LV carver. diameter/BSA (cm/m^2): 2.0 LV sys. diameter/BSA (cm/m^2): 1.3 LA A2 area: 18.9 cm2 RA long axis: 4.6 cm LA A4 area: 16.5 cm2 RA area: 15.6 cm2 LA length (vol): 5.3 cm RA vol: 45.2 ml LA vol: 49.6 ml RA : 22.6 ml/m2 LA vol index: 24.8 ml/m2 IVC diam: 1.9 cm RVD1 (basal): 3.4 cm RVD2 (mid): 2.6 cm TAPSE: 1.5 cm Doppler Measurements & Calculations Ao V2 max: 248.8 cm/sec LVOT Max Jair: 96.7 cm/sec Ao V2 mean: 178.2 cm/sec LV V1 max P.7 mmHg Ao max P.4 mmHg LV V1 VTI: 24.6 cm Ao mean P.2 mmHg CASTILLO(I,D): 1.3 cm2 Ao V2 VTI: 56.7 cm CASTILLO(V,D): 1.2 cm2 sev ratio: 0.43 CASTILLO indexed to BSA (cm^2/m^2): 0.67 MV E max jair: 104.9 cm/sec TR max jair: 231.9 cm/sec MV A max jair: 87.6 cm/sec TR max P.5 mmHg MV E/A: 1.2 PA V2 max: 119.2 cm/sec Med Peak E' Jair: 4.2 cm/sec PA V2 mean: 81.8 cm/sec E/E' med: 25.3 PA mean P.0 mmHg Lat Peak E' Jair: 6.9 cm/sec PA pr(Accel): 39.6 mmHg E/E' lat: 15.3 E/e' average: 20.3 MV dec time: 0.23 sec SV(LVOT): 76.3 ml Reading Physician:09:03 PM
== END ==
LOC: ECHO 12:02
PROVIDERS: PCP Family Medicine; Referring Provider Family Medicine; Visit Provider Family Medicine
DX: I08.1 Rheumatic disorders of both mitral and tricuspid valves (principal); I11.9 Hypertensive heart disease without heart failure; I77.89 Other specified disorders of arteries and arterioles; Z95.2 Presence of prosthetic heart valve
CPT/HCPCS: 93306